=== PATIENT | female | born 1980 | race Caucasian/White ===

== ENCOUNTER 2018-03-09 08:10 | Emergency (ER) | payer OTHER ==
[~2018-03-09] VITALS: Ht 167.6 cm; Wt 102.1 kg
--- OUTSIDE RECORDS SUMMARY | 2018-03-09 08:14 | XMS REPORT | Encounter Summary ---
Author Organization Unknown Address [address] [place] [address] Phone [phone] Reason for Visit Medical Complaint Instructions 1. Lower respiratory tract infection Zithromax Z-Bob 250 mg tablet ProAir HFA 90 mcg/actuation aerosol inhaler Discussion Note: None recorded. Patient educational handouts: No information available. Plan of Care Patient Instructions otc mucinex as needed. follow up pcp Reminders Provider Appointments None recorded. Lab None recorded. Referral None recorded. Procedures None recorded. Surgeries None recorded. Imaging None recorded. Medications Name Start Date alprazolam 0.25 mg tablet TK 1 T PO QD PRF PANIC alprazolam 0.5 mg tablet TK 1 T PO QD PRN FOR ANXIETY aripiprazole 2 mg tablet aripiprazole 5 mg tablet divalproex ER 500 mg tablet,extended release 24 hr duloxetine 30 mg capsule,delayed release duloxetine 60 mg capsule,delayed release gabapentin 300 mg capsule hydrochlorothiazide 12.5 mg tablet ProAir HFA 90 mcg/actuation aerosol inhaler Inhale 2 puffs every 4 hours by inhalation route as directed. quetiapine 100 mg tablet quetiapine 200 mg tablet quetiapine 50 mg tablet simvastatin 40 mg tablet temazepam 15 mg capsule Zithromax Z-Bob 250 mg tablet TAKE 2 TABLETS (500 MG) BY ORAL ROUTE ONCE DAILY FOR 1 DAY THEN 1 TABLET (250 MG) BY ORAL ROUTE ONCE DAILY FOR 4 DAYS Medications Administered None recorded. Vitals Height Weight BMI Blood Pressure 5 ft 6 in 231 lbs 37.3 kg/m2 124/76 mm[Hg] Lab Results None recorded. Allergies Code Code System Name Reaction Severity Status Onset NKDA Problems Name Status Onset Date Source Bronchitis Active Encounter Procedures Date Name Performed by Tonsillectomy Information not available Tubal Ligation Information not available Vaccine List None recorded. Social History Smoking Status Current Every Day Smoker Past Encounters 03/28/2017 Lower Respiratory Tract Infection Oral Peck, PRATIBHA-C: [address] [place] [address], Ph. History of Present Illness Cough Reported By: Patient HPI: Location: chest. Quality: productive cough, colored phlegm, dry cough. Duration: symptoms lasting over 2 weeks. Severity: moderate. Onset/Timing: gradual. Context: no sick contacts, no foreign travel, non-smoker. Modifying factors: OTC medication. Associated Symptoms: no shortness of breath, no wheezing, no sweats, no significant weight gain, no significant weight loss, no morning cough, no sore throat, no vomiting, no diarrhea, no rash, no nausea, no muscle aches, no headache, yellow sputum, fever/chills Review of Systems:ROS as noted in the HPI Review of Systems Basic Reported By: Patient Physical Exam Adult Basic, Adult Female Complete Reported By: Patient Constitutional: General Appearance: obese. Level of Distress: NAD. Ambulation: ambulating normally Psychiatric: Mental Status: active and alert Neck: Neck: trachea midline. Lymph Nodes: no cervical LAD Lungs: Respiratory effort: no dyspnea, no tachypnea, no use of accessory muscles, no intercostal retractions. Auscultation: dry rales/crackles Cardiovascular: Heart Auscultation: RRR, no murmurs
--- OUTSIDE RECORDS SUMMARY | 2018-03-09 08:14 | XMS REPORT | Encounter Summary ---
Author Organization Unknown Address [address] [place] [address] Phone [phone] Reason for Visit Medical Complaint Instructions 1. Fever rapid flu (A+B) 2. Cough 3. Abnormal breath sounds 4. Body mass index 30+ - obesity Discussion Note sent to ER for chest xray Patient educational handouts: No information available. Plan of Care Reminders Provider Appointments None recorded. Lab Rapid Flu (A+B) 03/08/2018 [facility] Referral None recorded. Procedures None recorded. Surgeries None recorded. Imaging None recorded. Medications Name Start Date duloxetine 30 mg capsule,delayed release TK 3 CS PO QAM hydrochlorothiazide 12.5 mg capsule TK ONE C PO D. PATIENT NEEDS APPOINTMENT Nexium 20 mg capsule,delayed release Take 1 capsule every day by oral route. prazosin 5 mg capsule TK ONE C PO QHS simvastatin 40 mg tablet TK 1 T PO QD. PATIENT NEEDS APPT Medications Administered None recorded. Vitals Height Weight BMI Blood Pressure 5 ft 6 in 231 lbs 37.3 kg/m2 119/72 mm[Hg] Lab Results Date Name Specimen Result Interpretation Description Value Range Status Address 03/08/2018 Rapid Flu (A+B) Influenza a negative [facility]: [address] [place] [address] Influenza B negative [facility]: [address] [place] [address] Allergies Code Code System Name Reaction Severity Status Onset NKDA Problems No Known Problems Procedures Date Name Performed by Information not available Information not available Tonsillectomy Information not available Tubal Ligation Information not available Vaccine List None recorded. Social History Smoking Status Current Every Day Smoker Past Encounters 03/08/2018 Fever; Cough; Abnormal Breath Sounds; Body Mass Index 30+ - Obesity Deja Pastrana PA-C: [address] [place] [address], Ph. History of Present Illness Kuarb-Uvtnmhqwwt-Nzsulit Reported By: Patient HPI: Location: head/sinuses. Quality: nasal/sinus congestion. Duration: 6days. Severity: moderate. Onset/Timing: sudden. Context: no foreign travel, non- smoker, sick contact. Modifying factors: OTC medication. Associated Symptoms: no sputum production, no shortness of breath, no wheezing, no change in number of pillows needed to sleep at night, no sweats, no significant weight gain, no significant weight loss, no sore throat, no vomiting, no diarrhea, no rash, no nausea, no fever, morning cough, fever, muscle aches, headache Review of Systems Basic Reported By: Patient Constitutional: Constitutional: no fever Eyes: Eyes: no eye complaints Xdiz-Onov-Vwatf-Throat: Ears: no ear complaints. Nose: nose/sinus problems. Mouth/Throat: no bleeding gums, no mouth complaints, no teeth problems Cardiovascular: Cardiovascular: no chest pain, no shortness of breath, no known heart murmur Respiratory: Respiratory: cough, wheezing, shortness of breath Gastrointestinal: Gastrointestinal: no abdominal pain, vomiting Genitourinary: Genitourinary: no urinary complaints, no discharge Musculoskeletal: Musculoskeletal: no muscle aches, no muscle weakness, no arthralgias/joint pain, no back pain Skin: Skin: no abnormal / changing mole, no jaundice, no rashes Neurologic: Neurologic: no loss of consciousness, no weakness, no numbness, no seizures, no headaches, dizziness, headache Physical Exam Adult Basic Reported By: Patient Constitutional: General Appearance: healthy-appearing, well-nourished, well-developed, overweight. Level of Distress: mild distress. Ambulation: ambulating normally Psychiatric: Mental Status: active and alert. Orientation: to time, to place, to person Eyes: Lids and Conjunctivae: non-injected, no discharge, no pallor. Pupils: PERRLA. EOM: EOMI. Sclerae: non-icteric. Vision: acuity grossly intact Shr-Wcsm-Eluyn-Throat: Ears: no lesions on external ear, no outer ear tenderness, EACs clear, TMs clear. Hearing: no hearing loss. Nose: no lesions on external nose, nares patent, no septal deviation, nasal passages clear, no sinus tenderness, post nasal drip. Lips, Teeth, and Gums: no mouth or lip ulcers, no bleeding gums, normal dentition. Oropharynx: moist mucous membranes, no erythema, no exudates, tonsils not enlarged; cobblestoning Neck: Neck: supple, trachea midline, no masses, FROM. Lymph Nodes: no cervical LAD, no supraclavicular LAD Lungs: Respiratory effort: no dyspnea, no tachypnea, no use of accessory muscles, no intercostal retractions. Auscultation: expiratory wheezing, dry rales/crackles Cardiovascular: Heart Auscultation: RRR, no murmurs
--- OUTSIDE RECORDS SUMMARY | 2018-03-09 08:14 | XMS REPORT | Encounter Summary ---
Author Organization Unknown Address [address] [place] [address] Phone [phone] Care Team Providers Care Manager Truck Name Role Phone Bal Alfonso 3 [phone] Reason for Visit Medical Complaint Instructions 1. Acute upper respiratory infection rapid flu (A+B) upper respiratory infection (cold): care instructions benzonatate 200 mg capsule doxycycline hyclate 100 mg tablet 2. Cigarette smoker 3. Headache headache: care instructions Discussion Note Pt is in NAD; Verbalizes understanding of all instructions with no questions at this time. Plan of Care Patient Instructions Alternate with Ibuprofen and acetaminophen every 4hrs as needed for fever/pain/headache. Proper hydration and rest. Start benzonatate for cough. Continue ProAir Inhalers 2 puffs every 4-6 hrs as needed for shortness of breath/wheezing. If no improvement in 2-3 days, start antibiotics as directed. Take medications as prescribed and follow up with a PCP within 2-3 if symptoms worsen as discussed. In case of emergency call 911 or go to nearest ER. I recommend smoking cessation. Reminders Provider Appointments None recorded. Lab Rapid Flu (A+B) 04/27/2017 [facility] Referral None recorded. Procedures None recorded. Surgeries None recorded. Imaging None recorded. Medications Name Start Date alprazolam 0.25 mg tablet TK 1 T PO QD PRF PANIC alprazolam 0.5 mg tablet TK 1 T PO QD PRN FOR ANXIETY aripiprazole 2 mg tablet benzonatate 200 mg capsule Take 1 capsule 3 times a day by oral route as needed. divalproex ER 500 mg tablet,extended release 24 hr doxycycline hyclate 100 mg tablet Take 1 tablet twice a day by oral route as directed for 10 days. duloxetine 30 mg capsule,delayed release gabapentin 300 mg capsule TK ONE C PO TID hydrochlorothiazide 12.5 mg tablet Nexium 20 mg capsule,delayed release Take 1 capsule every day by oral route. ProAir HFA 90 mcg/actuation aerosol inhaler INHALE 2 PUFFS PO Q 4 H quetiapine 100 mg tablet quetiapine 200 mg tablet quetiapine 50 mg tablet simvastatin 40 mg tablet temazepam 15 mg capsule Medications Administered None recorded. Vitals Height Weight BMI Blood Pressure 5 ft 6 in 231 lbs 37.3 kg/m2 125/80 mm[Hg] Lab Results Date Name Specimen Result Interpretation Description Value Range Status Address Rapid Flu (A+B) Influenza a negative [facility]: [address] [place] [address] Influenza B negative [facility]: [address] [place] [address] Allergies Code Code System Name Reaction Severity Status Onset NKDA Problems Name Status Onset Date Source Bronchitis Active Encounter Procedures Date Name Performed by Information not available Information not available Tonsillectomy Information not available Tubal Ligation Information not available Vaccine List None recorded. Social History Smoking Status Current Every Day Smoker Past Encounters 04/27/2017 Acute Upper Respiratory Infection; Cigarette Smoker; Headache Libertad Burns, SCHOOL CUSTODIAN-C: [address] [place] [address], Ph. 03/28/2017 Lower Respiratory Tract Infection Oral Peck, SCHOOL CUSTODIAN-C: [address] [place] [address], Ph. History of Present Illness Zymdvqo-Qjtrs-Vgy Reported By: Patient HPI: Quality: symptoms worse during the day. Duration: 3 days. Context: no ill contacts, no tick/insect bites, no recent travel, no new medications; Pt reports she will have a colonoscopy next week and she is adamant about antibiotics. She was educated on viral vs bacterial etiology. Pt is a cigarette smoker and is not interested in smoking cessations. Associated Symptoms: no fever/chills, no muscle aches, no rash, no lethargy, headache, cough, nasal passage blockage (stuffiness), nasal discharge; sneezing, chest congestion, mild intermittent wheezing and body aches. Modifying Factors nothing gives relief Review of Systems:ROS as noted in the HPI Review of Systems Basic Reported By: Patient Physical Exam Adult Basic, Adult Female Complete, Adult Male Complete Reported By: Patient Constitutional: General Appearance: healthy-appearing, well-nourished, well-developed. Level of Distress: NAD. Ambulation: ambulating normally Psychiatric: Mental Status: active and alert. Orientation: to time, to place, to person Eyes: Lids and Conjunctivae: non-injected, no discharge, no pallor. Pupils: PERRLA. Corneas: grossly intact. EOM: EOMI. Lens: clear. Vision: peripheral vision grossly intact Qor-Zwsr-Rbifd-Throat: Ears: no lesions on external ear, no outer ear tenderness, EACs clear, TMs clear. Hearing: no hearing loss. Nose: no lesions on external nose, nares patent, no septal deviation, nasal passages clear, no sinus tenderness, nasal discharge--rhinorrhea, post nasal drip. Lips, Teeth, and Gums: no mouth or lip ulcers, no bleeding gums, normal dentition. Oropharynx: moist mucous membranes, no erythema, no exudates, tonsils not enlarged Neck: Neck: supple. Lymph Nodes: no cervical LAD Lungs: Respiratory effort: no dyspnea, no tachypnea, no use of accessory muscles, no intercostal retractions. Auscultation: breath sounds normal, good air movement Cardiovascular: Heart Auscultation: RRR, no murmurs Neurologic: Gait and Station: normal gait, normal station. Cranial Nerves: grossly intact. Sensation: grossly intact. Reflexes: DTRs 2+ bilaterally throughout. Coordination and Cerebellum: hycduh-jq-buvd intact, no tremor
--- OUTSIDE RECORDS SUMMARY | 2018-03-09 08:14 | XMS REPORT | Continuity of Care Document ---
Author Author [facility] Interface Address Unknown Phone Unavailable Problems Problem Status Onset Date Classification Date Reported Comments Source Abnormal breath sounds 03/08/2018 Diagnosis 03/08/2018 [facility] Cough 03/08/2018 Diagnosis 03/08/2018 [facility] Fever 03/08/2018 Diagnosis 03/08/2018 [facility] Body mass index 30+ - obesity 03/08/2018 Diagnosis 03/08/2018 [facility] Acute upper respiratory infection 04/27/2017 Diagnosis 04/27/2017 [facility] Cigarette smoker 04/27/2017 Diagnosis 04/27/2017 [facility] Headache 04/27/2017 Diagnosis 04/27/2017 [facility] Lower respiratory tract infection 03/28/2017 Diagnosis 04/27/2017 [facility] Bronchitis Problem 04/27/2017 [facility] No current problems or disability Problem 03/08/2018 [facility] Medications Medication Details Route Status Patient Instructions Ordering Provider Order Date Source Alprazolam 0.25 MG Oral Tablet alprazolam 0.25 mg tablet TK 1 T PO QD PRF PANIC Active [facility] Alprazolam 0.5 MG Oral Tablet alprazolam 0.5 mg tablet TK 1 T PO QD PRN FOR ANXIETY Active [facility] aripiprazole 2 MG Oral Tablet aripiprazole 2 mg tablet Active [facility] aripiprazole 5 MG Oral Tablet aripiprazole 5 mg tablet Active [facility] 24 HR Divalproex Sodium 500 MG Extended Release Oral Tablet divalproex ER 500 mg tablet,extended release 24 hr Active [facility] duloxetine 30 MG Delayed Release Oral Capsule duloxetine 30 mg capsule,delayed release TK 3 CS PO QAM Active [facility] duloxetine 60 MG Delayed Release Oral Capsule duloxetine 60 mg capsule,delayed release Active [facility] gabapentin 300 MG Oral Capsule gabapentin 300 mg capsule TK ONE C PO TID Active [facility] Hydrochlorothiazide 12.5 MG Oral Tablet hydrochlorothiazide 12.5 mg tablet Active [facility] 200 ACTUAT Albuterol 0.09 MG/ACTUAT Metered Dose Inhaler [ProAir] ProAir HFA 90 mcg/actuation aerosol inhaler INHALE 2 PUFFS PO Q 4 H Active [facility] quetiapine 100 MG Oral Tablet quetiapine 100 mg tablet Active [facility] quetiapine 200 MG Oral Tablet quetiapine 200 mg tablet Active [facility] quetiapine 50 MG Oral Tablet quetiapine 50 mg tablet Active [facility] Simvastatin 40 MG Oral Tablet simvastatin 40 mg tablet TK 1 T PO QD. PATIENT NEEDS APPT Active [facility] Temazepam 15 MG Oral Capsule temazepam 15 mg capsule Active [facility] Azithromycin 250 MG Oral Tablet Zithromax Z-Bob 250 mg tablet TAKE 2 TABLETS (500 MG) BY ORAL ROUTE ONCE DAILY FOR 1 DAY THEN 1 TABLET (250 MG) BY ORAL ROUTE ONCE DAILY FOR 4 DAYS Active [facility] benzonatate 200 MG Oral Capsule benzonatate 200 mg capsule Take 1 capsule 3 times a day by oral route as needed. Active [facility] doxycycline hyclate 100 MG Oral Tablet doxycycline hyclate 100 mg tablet Take 1 tablet twice a day by oral route as directed for 10 days. Active [facility] Esomeprazole 20 MG Delayed Release Oral Capsule [Nexium] Nexium 20 mg capsule,delayed release Take 1 capsule every day by oral route. Active [facility] Hydrochlorothiazide 12.5 MG Oral Capsule hydrochlorothiazide 12.5 mg capsule TK ONE C PO D. PATIENT NEEDS APPOINTMENT Active [facility] Prazosin 5 MG Oral Capsule prazosin 5 mg capsule TK ONE C PO QHS Active [facility] Allergies, Adverse Reactions, Alerts Substance Category Reaction Severity Reaction type Status Date Reported Comments Source Immunizations Immunization Date Given Site Status Last Updated Comments Source Results Order Name Results Value Reference Range Date Interpretation Comments Source Influenza A negative 03/08/2018 [facility] Influenza B negative 03/08/2018 [facility] Influenza A negative 04/27/2017 [facility] Influenza B negative 04/27/2017 [facility] Vital Signs Vital Sign Value Date Comments Source Diastolic (mm Hg) 72 03/08/2018 [facility] Height 66 03/08/2018 [facility] Systolic (mm Hg) 119 03/08/2018 [facility] Weight 231 03/08/2018 [facility] Diastolic (mm Hg) 80 04/27/2017 [facility] Height 66 04/27/2017 [facility] Systolic (mm Hg) 125 04/27/2017 [facility] Weight 231 04/27/2017 [facility] Diastolic (mm Hg) 76 03/28/2017 [facility] Height 66 03/28/2017 [facility] Systolic (mm Hg) 124 03/28/2017 [facility] Weight 231 03/28/2017 [facility] Encounters Location Location Details Encounter Type Encounter Number Reason For Visit Attending Provider ADM Date DC Date Status Source [place] - [facility] - [id number] Oral Peck, AWNING FRAME MAKER-C: [address], [place] [address], Ph. [id number] Oral Peck 03/28/2017 [facility] [place] [facility] - [id number] EDER WhelanP-C: [address], [place] [address], Ph. [id number] Oral Peck 03/28/2017 [facility] [place] - [facility] - [id number] EDER LugoP-C: [address], [place] [address], Ph. [id number] Libertad Burns 04/27/2017 [facility] [place] - [facility] - [id number] ELMER ParisC: [address], [place] [address], Ph. [id number] Deja Pastrana 03/08/2018 [facility] Procedures Procedure Code Date Perfomer Comments Source Tonsillectomy [facility] Tubal Ligation [facility]
--- NOTE | 2018-03-09 09:59 | Diagnostic Imaging Report ---
EXAMINATION: PA and lateral views of the chest. COMPARISON: None CLINICAL HISTORY: Cough, congestion, shortness of breath DISCUSSION: Lines/tubes: None. Lungs: The lungs are well inflated 5 mm nodular density projecting in the retrocardiac region on lateral view. There is no evidence of pneumonia or pulmonary edema. Pleura: There is no pleural effusion or pneumothorax. Heart and mediastinum: Cardiomediastinal silhouette is unremarkable. Pulmonary vasculature is normal. Bones and soft tissues: No acute bony abnormalities. IMPRESSION: No acute cardiopulmonary abnormalities. 5 mm nodular density in the retrocardiac region likely represents a calcified granuloma. Prior films, if available, would be helpful for comparison. If no prior films can be obtained, recommend chest PA and lateral in 3-6 months to document stability. Signed by: Dr. Jamil Wheat M.D. on 03/09/2018 9:55 AM
[2018-03-09] MEDS ORDERED: ALBUTEROL/IPRATROPIUM 3 ML NEB NEB ONE (10:30)
[2018-03-09 11:14] VITALS: BP 116/82
== END 2018-03-09 11:20 | disposition home or self-care (01) ==
LOC: ER 08:10
DX: R50.9 Fever, unspecified (principal); R05 Cough; J20.9 Acute bronchitis, unspecified
CPT/HCPCS: 71046; 94640; 99283

== ENCOUNTER 2021-07-03 16:40 | Emergency (ER) | payer OTHER ==
[~2021-07-03] VITALS: Ht 167.6 cm; Wt 111.1 kg
[2021-07-03 17:08] LABS: BASOPHILS # (AUTO) 0.1 (0.0-0.1); BASOPHILS % 0.8 % (0.0-1.0); EOSINOPHILS # (AUTO) 0.4 (0.0-0.4); EOSINOPHILS % 3.9 % (0.0-6.0); HEMATOCRIT 33.3 % (34.2-44.1); HEMOGLOBIN 10.6 g/dL (12.0-16.0); LYMPHOCYTES # (AUTO) 2.5 (1.0-3.2); LYMPHOCYTES % 23.4 % (18.0-39.1); MEAN CORPUSCULAR HEMOGLOBIN 29.6 pg (28-32); MEAN CORPUSCULAR HGB CONC 31.8 g/dL (31-35); MONOCYTES # (AUTO) 0.5 (0.2-0.8); MONOCYTES % 4.3 % (4.4-11.3); NEUTROPHILS # (AUTO) 7.1 (2.1-6.9); NEUTROPHILS % 67.4 % (38.7-80.0); PLATELET COUNT 392 x10e3/uL (140-360); RED BLOOD COUNT 3.58 x10e6/uL (3.6-5.1); RED CELL DISTRIBUTION WIDTH 14.9 % (11.7-14.4)
[2021-07-03] MEDS ORDERED: KETOROLAC TROMETHAMINE 30 MG/ML VIAL IV STA (17:09)
[2021-07-03 17:25] LABS: ALBUMIN 4.1 g/dL (3.5-5.0); ALBUMIN/GLOBULIN RATIO 1.1 (0.8-2.0); ANION GAP 13.9 mmol/L (8-16); CREATININE, SERUM 0.83 mg/dL (0.57-1.11); POTASSIUM 3.9 mmol/L (3.5-5.1)
[2021-07-03 17:31] LABS: CREATINE KINASE MB 1.1 ng/mL (0-5.0)
== END 2021-07-03 18:16 | disposition home or self-care (01) ==
LOC: ER 16:42
DX: R07.89 Other chest pain (principal); F17.210 Nicotine dependence, cigarettes, uncomplicated; I10 Essential (primary) hypertension; E78.5 Hyperlipidemia, unspecified; K21.9 Gastro-esophageal reflux disease without esophagitis; F41.9 Anxiety disorder, unspecified; F43.10 Post-traumatic stress disorder, unspecified; F31.9 Bipolar disorder, unspecified
CPT/HCPCS: 36415; 71045; 80053; 82550; 82553; 84484; 85025; 93005; 99284; J1885

== ENCOUNTER 2023-11-28 20:19 | Emergency (ER) | payer OTHER ==
[~2023-11-28] VITALS: Ht 167.6 cm; Wt 111.1 kg
[2023-11-28 21:08] LABS: BASOPHILS # (AUTO) 0.1 (0.0-0.1); BASOPHILS % 1.3 % (0.0-1.0); EOSINOPHILS # (AUTO) 0.3 (0.0-0.4); EOSINOPHILS % 3.2 % (0.0-6.0); HEMATOCRIT 35.4 % (34.2-44.1); HEMOGLOBIN 11.6 g/dL (12.0-16.0); LYMPHOCYTES # (AUTO) 2.5 (1.0-3.2); LYMPHOCYTES % 31.8 % (18.0-39.1); MEAN CORPUSCULAR HEMOGLOBIN 30.1 pg (28-32); MEAN CORPUSCULAR HGB CONC 32.8 g/dL (31-35); MEAN CORPUSCULAR VOLUME 91.7 fL (81-99); MONOCYTES # (AUTO) 0.5 (0.2-0.8); MONOCYTES % 6.3 % (4.4-11.3); NEUTROPHILS # (AUTO) 4.5 (2.1-6.9); NEUTROPHILS % 57.3 % (38.7-80.0); PLATELET COUNT 307 x10e3/uL (140-360); RED BLOOD COUNT 3.86 x10e6/uL (3.6-5.1); RED CELL DISTRIBUTION WIDTH 14.6 % (11.7-14.4); WHITE BLOOD COUNT 7.79 x10e3/uL (4.8-10.8)
[2023-11-28] MEDS: KETOROLAC TROMETHAMINE 30 MG/ML VIAL IV STA (21:13)
[2023-11-28] MEDS: ONDANSETRON HCL INJ 2MG/ML 2ML 2 MG/ML VIAL IV STA (21:13)
[2023-11-28] MEDS: SODIUM CHLORIDE 0.9% 1000ML 1,000 ML IV STA (21:13)
[2023-11-28 21:32] LABS: ALBUMIN 4.1 g/dL (3.5-5.0); ALBUMIN/GLOBULIN RATIO 1.2 (0.8-2.0); BILIRUBIN,TOTAL 0.2 mg/dL (0.2-1.2); CALCIUM 9.4 mg/dL (8.4-10.2); CREATININE, SERUM 0.9 mg/dL (0.57-1.11); TOTAL PROTEIN 7.5 g/dL (6.5-8.1)
[2023-11-28 21:40] LABS: BILIRUBIN,URINE NEGATIVE (NEGATIVE); CLARITY,URINE CLEAR (CLEAR); COLOR,URINE YELLOW (YELLOW); GLUCOSE, URINE NEGATIVE (NEGATIVE); KETONES,URINE NEGATIVE (NEGATIVE); LEUKOCYTE ESTERASE ,URINE NEGATIVE (NEGATIVE); NITRITE,URINE NEGATIVE (NEGATIVE); PH,URINE 7 (5 - 7); PROTEIN,URINE DIPSTICK NEGATIVE (NEGATIVE); RBC,URINE 0-5 /HPF (0-5); URINE UROBILINOGEN 0.2 mg/dL (0.2 - 1); WBC,URINE (MAN) 0-5 /HPF (0-5)
[2023-11-28 21:41] LABS: ANION GAP 19.6 mmol/L (8-16); POTASSIUM 3.6 mmol/L (3.5-5.1)
[2023-11-28 21:47] LABS: BACTERIA,URINE FEW /HPF; EPITHELIAL CELLS,URINE FEW /LPF; PREGNANCY TEST, URINE NEGATIVE (NEGATIVE)
[2023-11-28] MEDS ORDERED: IOPAMIDOL 370 MG/ML 100 ML INFUS..BTL INJ ONE (22:02)
[2023-11-28] MEDS: Morphine 4mg INJECTION 4 MG/ML INJ IV STA (22:48)
[2023-11-29] MEDS ORDERED: ULTRAM 50MG50 MG PO (00:34)
[2023-11-29 00:44] VITALS: PULSE 72; RESP 16; TEMP 98.7; O2SAT 98
== END 2023-11-29 00:44 | disposition home or self-care (01) ==
LOC: ER 20:36
DX: R10.31 Right lower quadrant pain (principal); N20.0 Calculus of kidney; R11.2 Nausea with vomiting, unspecified; I10 Essential (primary) hypertension; E78.5 Hyperlipidemia, unspecified; K21.9 Gastro-esophageal reflux disease without esophagitis; F41.9 Anxiety disorder, unspecified; F31.9 Bipolar disorder, unspecified; F43.10 Post-traumatic stress disorder, unspecified; Z11.52 Encounter for screening for COVID-19
CPT/HCPCS: 36415; 74177; 80053; 81001; 81025; 83690; 85025; 99284; J1885; J2270; J2405; J7030; Q9967; U0002